=== PATIENT | female | born 1980 | race Hispanic/Latino ===

== ENCOUNTER 2018-11-17 16:27 | Emergency (ER) | payer OTHER, MEDICARE | END 2018-11-17 17:00 | disposition home or self-care (01) | LOC: EEVIPCON 16:27 → EDH 16:27 | DX: M54.9 Dorsalgia, unspecified (principal); J02.9 Acute pharyngitis, unspecified; E11.9 Type 2 diabetes mellitus without complications; Z72.0 Tobacco use; Z98.890 Other specified postprocedural states ==

== ENCOUNTER 2019-05-29 02:17 | Emergency (ER) | payer OTHER, MEDICARE ==
[2019-05-29] MEDS ORDERED: KETOROLAC TROMETHAMINE 30MG/ML ONE (02:56)
[2019-05-29] MEDS ORDERED: CYCLOBENZAPRINE HCL 10 MG TABLET ONE (02:56)
[2019-05-29 03:06] LABS: HCG,QUAL RESULT NEGATIVE (NEGATIVE)
[2019-05-29 03:21] LABS: AMPHET/METH SCREEN,URINE NEGATIVE (NEGATIVE); BARBITURATE SCREEN, URINE NEGATIVE (NEGATIVE); BENZODIAZEPINES SCREEN,URINE NEGATIVE (NEGATIVE); CANNABINOID SCREEN,URINE NEGATIVE (NEGATIVE); COCAINE SCREEN,URINE POSITIVE (NEGATIVE); OPIATE SCREEN,URINE NEGATIVE (NEGATIVE); PHENCYCLIDINE SCREEN,URINE NEGATIVE (NEGATIVE)
== END 2019-05-29 04:05 | disposition home or self-care (01) ==
LOC: EDH 02:17
DX: S29.011A Strain of muscle and tendon of front wall of thorax, initial encounter (principal); F14.10 Cocaine abuse, uncomplicated; E11.9 Type 2 diabetes mellitus without complications; Z72.0 Tobacco use; V49.50XA Passenger injured in collision with unspecified motor vehicles in traffic accident, initial encounter; Y93.89 Activity, other specified; Y92.89 Other specified places as the place of occurrence of the external cause; Y99.8 Other external cause status
CPT/HCPCS: 71045; 80305; 81025; 96372; 99285; J1885

== ENCOUNTER 2021-01-19 17:50 | Emergency (ER) | payer OTHER, MEDICARE | END 2021-01-19 17:52 | disposition left against medical advice (07) | LOC: EDH 17:50 | DX: Z53.21 Procedure and treatment not carried out due to patient leaving prior to being seen by health care provider (principal) ==

== ENCOUNTER 2022-11-02 05:30 | Day surgery (SDC) | payer OTHER, MEDICARE ==
[2022-10-28 13:18] LABS: BASOPHILS % (AUTO) 0.5 % (0.0-5.0); EOSINOPHILS % (AUTO) 0.2 % (0.0-8.0); HEMATOCRIT 39.3 % (36-48); LYMPHOCYTES % (AUTO) 32.4 % (21.0-51.0); MEAN CORPUSCULAR HEMOGLOBIN 33.1 pg (27.0-33.0); MEAN CORPUSCULAR HGB CONC 33.8 g/dL (32.0-36.0); MEAN CORPUSCULAR VOLUME 97.8 fL (79-99); MONOCYTES % (AUTO) 8.8 % (3.0-13.0); NEUTROPHILS % (AUTO) 57.9 % (40.0-77.0); PLATELET COUNT (AUTO) 195 K/uL (130-400); RED BLOOD CELL COUNT(AUTO) 4.02 MIL/uL (4.00-5.50); RED CELL DISTRIBUTION WIDTH 12.7 % (11.0-15.5); WHITE BLOOD COUNT (AUTO) 6.6 K/uL (4.8-10.8)
[2022-10-28 13:23] LABS: APPEARANCE,URINE CLOUDY (CLEAR); BILIRUBIN,URINE NEGATIVE (NEGATIVE); COLOR,URINE YELLOW (YELLOW); GLUCOSE, URINE (UA) NEGATIVE (NEGATIVE); KETONES,URINE 5 mg/dL (NEGATIVE); LEUKOCYTE ESTERASE ,URINE NEGATIVE Leu/uL (NEGATIVE); NITRATE,URINE NEGATIVE (NEGATIVE); PROTEIN,URINE 30 mg/dL (NEGATIVE)
[2022-10-28 13:47] LABS: MUCUS,URINE MANY LPF (None Seen); SQUAMOUS EPITHELIAL CELL,UR MOD /HPF (0-2)
[2022-11-01 08:48] VITALS: BP 109/61
[~2022-11-02] VITALS: Ht 154.9 cm; Wt 39.7 kg
[2022-11-02] VITALS (8 sets, daily range): BP systolic 96–129; BP diastolic 66–75
[~2022-11-02 05:30] MED LIST: ACET-2743 PO; ACETIC ACID 0.25% 1,000 ML IRRIG.SOLN ONE; DIPH25CA85 PO; STRONG IODINE SOLN 14ML BOTTLE ONE
[2022-11-02] MEDS ORDERED: LACTATED RINGERS 1000ML 1,000 ML IV ONE (05:48)
[2022-11-02] MEDS ORDERED: SUCCINYLCHOLINE CHLORIDE 20 MG/ML 10 ML VIAL ONE (07:01)
[2022-11-02] MEDS ORDERED: GLYCOPYRROLATE 1 MG/5 ML SYRINGE ONE (07:01)
[2022-11-02] MEDS ORDERED: MIDAZOLAM HCL 1 MG/ML 2ML VIAL ONE (07:01)
[2022-11-02] MEDS ORDERED: ONDANSETRON 4MG INJ ONE (07:01)
[2022-11-02] MEDS ORDERED: LIDOCAINE PF 100MG/5ML (2%) SYRINGE 5ML ONE ×2 (07:01→07:10)
[2022-11-02] MEDS ORDERED: DEXAMETHASONE SOD PHOSPHATE 10MG/ML 1ML VIAL ONE (07:01)
[2022-11-02] MEDS ORDERED: PROPOFOL 10 MG/ML 20ML VIAL IV ONE (07:02)
[2022-11-02] MEDS ORDERED: ROCURONIUM 10MG/1ML SYR 10 MG/ML ML ONE (07:02)
[2022-11-02] MEDS ORDERED: NEOSTIGMINE 5MG/5ML SYR IV ONE (07:02)
[2022-11-02] MEDS ORDERED: FENTANYL CITRATE PF 50 MCG/1 ML 2ML VIAL ONE (07:02)
[2022-11-02] MEDS ORDERED: PHENYLEPHRINE HCL 10 MG/ML 1ML VIAL IV ONE (07:14)
[2022-11-02] MEDS ORDERED: STRONG IODINE SOLN 14ML BOTTLE MISC ONE (07:23)
[2022-11-02] MEDS ORDERED: ACETIC ACID 0.25% 1,000 ML IRRIG.SOLN TP ONE (07:23)
[2022-11-02] MEDS ORDERED: MEPERIDINE-PF 25 MG/ML SYG ONE ×2 (07:34→07:54)
== END 2022-11-02 09:30 | disposition home or self-care (01) ==
LOC: DAH 05:30
PROVIDERS: ATTEND Obstetrics & Gynecology
DX: N87.0 Mild cervical dysplasia (principal); C53.9 Malignant neoplasm of cervix uteri, unspecified; Z20.822 Contact with and (suspected) exposure to COVID-19; K21.9 Gastro-esophageal reflux disease without esophagitis; F17.210 Nicotine dependence, cigarettes, uncomplicated; Z98.84 Bariatric surgery status; Z83.3 Family history of diabetes mellitus; Z82.62 Family history of osteoporosis; Z83.49 Family history of other endocrine, nutritional and metabolic diseases; Z72.89 Other problems related to lifestyle
CPT/HCPCS: 84703; 85025; 86850 ×2; 86900 ×2; 86901 ×2; 87426; 81001; 36415 ×2; 57522; 81025; 88307; 88342; 88341; A6260; A4663; A4351; J7120; J3010; J3490; J1100; J2710; J0330; J2001 ×2; J2250; J2704; J2405; J2175; J2370; A4649; A4215; A4223; A4222; A4221

== ENCOUNTER 2022-12-11 18:23 | Emergency (ER) | payer OTHER, MEDICARE ==
[~2022-12-11] VITALS: Ht 154.9 cm; Wt 31.8 kg
[~2022-12-11 18:23] MED LIST changes: -ACETIC ACID 0.25% 1,000 ML IRRIG.SOLN ONE; -STRONG IODINE SOLN 14ML BOTTLE ONE
[2022-12-11 18:52] LABS: BASOPHILS % (AUTO) 0.7 % (0.0-5.0); EOSINOPHILS % (AUTO) 0.2 % (0.0-8.0); HEMATOCRIT 44.8 % (36-48); LYMPHOCYTES % (AUTO) 34.9 % (21.0-51.0); MEAN CORPUSCULAR HEMOGLOBIN 33.5 pg (27.0-33.0); MEAN CORPUSCULAR HGB CONC 34.4 g/dL (32.0-36.0); MEAN CORPUSCULAR VOLUME 97.4 fL (79-99); PLATELET COUNT (AUTO) 236 K/uL (130-400); RED CELL DISTRIBUTION WIDTH 12.6 % (11.0-15.5); WHITE BLOOD COUNT (AUTO) 5.7 K/uL (4.8-10.8)
[2022-12-11] MEDS ORDERED: ONDANSETRON 4MG INJ IVP ONE (19:00)
[2022-12-11] MEDS ORDERED: 0.9%NACL 1000ML 1,000 ML IV ONE (19:00)
[2022-12-11] MEDS ORDERED: MORPHINE 4 MG SYG IVP ONE (19:00)
[2022-12-11 19:04] LABS: CREATININE 0.9 mg/dL (0.5-1.5); POTASSIUM 3.6 mmol/L (3.5-5.1)
[2022-12-11 19:10] LABS: ALBUMIN 4.1 g/dL (3.5-5.0); TOTAL PROTEIN, SERUM 7.4 g/dL (6.0-8.3)
[2022-12-11 20:07] LABS: APPEARANCE,URINE CLEAR (CLEAR); BILIRUBIN,URINE NEGATIVE (NEGATIVE); COLOR,URINE LIGHT-YELLOW (YELLOW); GLUCOSE, URINE (UA) NEGATIVE (NEGATIVE); KETONES,URINE NEGATIVE (NEGATIVE); LEUKOCYTE ESTERASE ,URINE 75 Leu/uL (NEGATIVE); NITRATE,URINE NEGATIVE (NEGATIVE); OCCULT BLOOD,URINE MODERATE (NEGATIVE); PH,URINE 5.5 (5.0-8.0); PROTEIN,URINE NEGATIVE (NEGATIVE); UROBILINOGEN,URINE 0.2 mg/dL (0.2-1.0)
[2022-12-11 20:10] LABS: HCG,QUALITATIVE URINE NEGATIVE (NEGATIVE)
[2022-12-11 20:15] LABS: BACTERIA,URINE RARE /HPF (None Seen); MUCUS,URINE RARE LPF (None Seen); SQUAMOUS EPITHELIAL CELL,UR MOD /HPF (0-2)
[2022-12-11] MEDS ORDERED: IOHEXOL 350 MG/ML 100ML INFUS..BTL IV ONE (20:31)
[2022-12-11] MEDS ORDERED: CEFTRIAXONE 1G VIAL IVP ONE (21:30)
[2022-12-11] MEDS ORDERED: KETOROLAC 30MG VIAL (30MG/ML) IM ONE (21:30)
[2022-12-11] MEDS ORDERED: IBUP-2070 PO (22:26)
[2022-12-11] MEDS ORDERED: SULF1TAB42 PO (22:26)
[2022-12-11 22:31] VITALS: BP 99/71
== END 2022-12-11 22:41 | disposition home or self-care (01) ==
LOC: EDH 18:23
DX: N39.0 Urinary tract infection, site not specified (principal); K40.90 Unilateral inguinal hernia, without obstruction or gangrene, not specified as recurrent; E86.0 Dehydration
CPT/HCPCS: 99285; 84484; 80053; 83690; 85025; 87088; 81001; 81025; 36415; 74177; 76705; 96372; 96374; 96361; 96375; 93005; J7030; J0696; J2405; J2270; J1885; Q9967

== ENCOUNTER 2023-01-10 09:24 | Emergency (ER) | payer OTHER, MEDICARE ==
[~2023-01-10] VITALS: Ht 154.9 cm; Wt 42.2 kg
[~2023-01-10 09:24] MED LIST changes: +IBUP-2070 PO; +SULF1TAB42 PO
[2023-01-10] MEDS ORDERED: ONDANSETRON 4MG INJ IVP ONE (10:00)
[2023-01-10] MEDS ORDERED: 0.9%NACL 1000ML 1,000 ML IV ONE (10:00)
[2023-01-10] MEDS ORDERED: FAMOTIDINE 20MG VIAL IV ONE (10:00)
[2023-01-10] MEDS ORDERED: MORPHINE 4 MG SYG IVP ONE (10:00)
[2023-01-10 10:10] LABS: BASOPHILS % (AUTO) 0.2 % (0.0-5.0); EOSINOPHILS % (AUTO) 0.3 % (0.0-8.0); HEMATOCRIT 41.9 % (36-48); MEAN CORPUSCULAR HEMOGLOBIN 33.3 pg (27.0-33.0); MEAN CORPUSCULAR HGB CONC 33.9 g/dL (32.0-36.0); MEAN CORPUSCULAR VOLUME 98.4 fL (79-99); MONOCYTES % (AUTO) 7.9 % (3.0-13.0); NEUTROPHILS % (AUTO) 74.2 % (40.0-77.0); PLATELET COUNT (AUTO) 206 K/uL (130-400); RED BLOOD CELL COUNT(AUTO) 4.26 MIL/uL (4.00-5.50); RED CELL DISTRIBUTION WIDTH 13.1 % (11.0-15.5); WHITE BLOOD COUNT (AUTO) 10.4 K/uL (4.8-10.8)
[2023-01-10 10:29] LABS: CREATININE 0.6 mg/dL (0.5-1.5); POTASSIUM 3.7 mmol/L (3.5-5.1)
[2023-01-10 10:34] LABS: ALBUMIN 3.6 g/dL (3.5-5.0); TOTAL PROTEIN, SERUM 6.6 g/dL (6.0-8.3)
[2023-01-10 12:33] LABS: HCG,QUALITATIVE URINE NEGATIVE (NEGATIVE)
[2023-01-10] MEDS ORDERED: IOHEXOL-350 75 ML VIAL IV ONE (12:39)
[2023-01-10 12:40] LABS: APPEARANCE,URINE CLOUDY (CLEAR); BILIRUBIN,URINE NEGATIVE (NEGATIVE); COLOR,URINE LIGHT-YELLOW (YELLOW); GLUCOSE, URINE (UA) NEGATIVE (NEGATIVE); KETONES,URINE NEGATIVE (NEGATIVE); LEUKOCYTE ESTERASE ,URINE NEGATIVE Leu/uL (NEGATIVE); NITRATE,URINE NEGATIVE (NEGATIVE); OCCULT BLOOD,URINE NEGATIVE (NEGATIVE); PH,URINE 6.5 (5.0-8.0); PROTEIN,URINE NEGATIVE (NEGATIVE); UROBILINOGEN,URINE 0.2 mg/dL (0.2-1.0)
[2023-01-10] MEDS ORDERED: DOCU-116 PO (13:44)
[2023-01-10] MEDS ORDERED: POLY17PO4 PO (13:44)
[2023-01-10 13:56] VITALS: BP 99/64
== END 2023-01-10 13:58 | disposition home or self-care (01) ==
LOC: EDH 09:24
DX: K59.00 Constipation, unspecified (principal); K40.90 Unilateral inguinal hernia, without obstruction or gangrene, not specified as recurrent; E86.0 Dehydration; Z79.899 Other long term (current) drug therapy
CPT/HCPCS: 99285; 80053; 83690; 85025; 81003; 81025; 36415; 74177; 96374; 96361; 96375; J3490; J7030; J2405; J2270; Q9967